=== PATIENT | male | born 2000 | race Caucasian/White ===

== ENCOUNTER 2022-11-28 12:55 | Emergency (ER) | payer OTHER, SELFPAY ==
--- NOTE | ~2022-11-28 | XR_ITS ---
XR foot LT min 3V 11/28/2022 13:40 INDICATION: Left foot pain after trauma PROCEDURE: 4 views left foot COMPARISON: No prior studies for comparison. FINDINGS: Fracture, dislocation or subluxation is not identified. Lisfranc joint intact. The soft tis sues appear within normal limits. No foreign bodies are identified. IMPRESSION: 1: NO ACUTE BONE OR JOINT ABNORMALITY IDENTIFIED. Reviewed, dictated and finalized at location A.
[2022-11-28 12:55] VITALS: BP 159/87; PULSE 99; RESP 20; TEMP 37.2; O2SAT 99
[2022-11-28] MEDS: KETOROLAC (*BKC) 60 MG/2 ML VIAL IM (14:04)
--- NOTE | 2022-11-28 14:04 | ED.GENADULT ---
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 This occurred just before admission complains of left 5th 4th and 3rd toe and distal foot dorsal tenderness and feels little numb. Complains of 5/6 over 10 pain worse to walk on it. Denies any other injury or previous injury. Denies any other complaints denies any problems eating or drinking swelling lumps or bumps dizziness or lightheadedness rash or itching or problems eating or drinking voiding or stooling bleeding or bruising dizziness or lightheadedness problems seeing hearing or talking. Denies any other complaints. Related Data Home Medications Medication Instructions Recorded Confirmed rimegepant 75 mg disintegrating 75 mg PO ONCE PRN Pain 11/28/22 11/28/22 tablet (Nurtec ODT) Allergies Allergy/AdvReac Type Severity Reaction Status Date / Time No Known Allergies Allergy Verified 11/28/22 13:09 Review of Systems Review of Systems: All systems reviewed & are unremarkable except as noted in HPI and below Exam Narrative: White male patient no apparent distress.? Head normocephalic, atraumatic.? Eyes conjunctiva pink sclera nonicteric.? Extraocular movements are intact.? Ears externally normal.? Oropharynx is clear with moist mucous membranes without exudates.? Neck is supple nontender no lymphadenopathy.? Back is nontender.? Lungs are clear.? Heart is regular rate and rhythm without murmurs gallops or rubs.? Chest wall is nontender.? Abdomen is soft and nontender no hepatosplenomegaly or masses no CVA tenderness no abdominal bruits.? Extremities no cyanosis clubbing or edema.? Left ankle normal with full range of motion and nontender. Left foot: Under 4th 5th and 3rd toes and distal 3rd 4th and 5th metatarsal area without swelling bruising. Sensations normal to light touch DP and PT pulses are +2. Skin is warm and dry without rashes or lesions.? Neurological patient is alert and oriented x4.? Motor and sensory grossly intact.? Gait Was normal. Course Vital Signs Vital signs: Vital Signs Temperature 37.2 C 11/28/22 12:55 Pulse Rate 99 11/28/22 12:55 Respiratory Rate 11/28/22 12:55 Blood Pressure 159/87 H 11/28/22 12:55 Pulse Oximetry 99 11/28/22 12:55 Oxygen Delivery Room Air 11/28/22 12:55 Temperature 37.2 C 11/28/22 12:55 Pulse Rate 99 11/28/22 12:55 Respiratory Rate 11/28/22 12:55 Blood Pressure 159/87 H 11/28/22 12:55 Pulse Oximetry 99 11/28/22 12:55 Oxygen Delivery Room Air 11/28/22 12:55 Medical Decision Making Differential Diagnosis Differential Diagnosis: Patient was placed in room 3 history and physical was performed. X-ray of his left foot was done which showed no fracture dislocation or abnormality as independently interpreted by me as well as radiologist. He was given a postop shoe for comfort and crutches. Independent Historian: ? Father Differential Dx includes but not limited to: fracture dislocation contusion Medications were Reviewed:? home meds reviewed? Medications treatments given: Toradol 60 mg IM Postop shoe Independently Interpreted by me:? left foot x-ray? External Source Review:?? 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 evaluation was discussed with patient all questions were asked and answered and patient agreed on plan. ? Clinical impression:? ? Left foot contusion ? Patient disposition: ? discharged home ? Condition at discharge: stable Vital Signs Vital Signs: Vital Signs Temperature 37.2 C 11/28/22 12:55 Pulse Rate 99 11/28/22 12:55 Respiratory Rate 11/28/22 12:55 Blood Pressure 159/87 H 11/28/22 12
[2022-11-28 14:59] VITALS: BP 139/80; PULSE 89; RESP 18; TEMP 36.8; O2SAT 98
== END 2022-11-28 15:05 | disposition home or self-care (01) ==
PROVIDERS: Emergency Provider Emergency Medicine
DX: S90.32XA Contusion of left foot, initial encounter (principal); W55.22XA Struck by cow, initial encounter; Y99.0 Civilian activity done for income or pay
CPT/HCPCS: 73630; 96372; 99283; J1885